=== PATIENT | female | born 1940 | race Caucasian/White ===

== ENCOUNTER 2021-11-06 17:21 | Emergency (ER) | payer MEDICARE, BC ==
[~2021-11-06] VITALS: Ht 180.3 cm; Wt 68.1 kg
[~2021-11-06 17:21] MED LIST: LORTAB 5/3255 MG PO
[2021-11-06] MEDS ORDERED: METOPROL TAR25 MG PO (18:02)
[2021-11-06] MEDS ORDERED: ELIQUIS2.5 MG (18:02)
[2021-11-06 19:16] LABS: HEMATOCRIT 39.1 % (37.0-47.0); HEMOGLOBIN 12.3 g/dl (12.0-16.0); IMMATURE GRANULOCYTES 0.2 % (0.0-5.0); MEAN CELL VOLUME 95.6 fL CALC (80.0-100.0); MEAN CORPUSCULAR HGB 30.1 pG CALC (26.0-32.0); MEAN CORPUSCULAR HGB CONC 31.5 g/dL CAL (32.0-36.0); NEUT# 9.38 thou/uL (2.00-7.15); RED BLOOD COUNT 4.09 mill/uL (4.20-5.60); RED CELL DISTRI WIDTH 12.9 % (11.5-15.5)
[2021-11-06 19:40] LABS: PROTHROMBIN TIME 10.4 SECONDS (9.0-12.5)
[2021-11-06 19:54] VITALS: BP 154/78
== END 2021-11-06 19:59 | disposition home or self-care (01) ==
LOC: ED 17:21
PROVIDERS: Nurse Practitioner
PROC: 0HQ0XZZ Repair Scalp Skin, External Approach (ICD-10-PCS; principal; 2021-11-06)
DX: S01.01XA Laceration without foreign body of scalp, initial encounter (principal); I10 Essential (primary) hypertension; W01.0XXA Fall on same level from slipping, tripping and stumbling without subsequent striking against object, initial encounter; Y92.009 Unspecified place in unspecified non-institutional (private) residence as the place of occurrence of the external cause; Z79.01 Long term (current) use of anticoagulants

== ENCOUNTER 2021-11-09 06:48 | Emergency (ER) | payer MEDICARE, BC ==
[2021-11-09] VITALS (9 sets, daily range): BP systolic 105–155; BP diastolic 56–79
[~2021-11-09] VITALS: Ht 172.7 cm; Wt 68.0 kg
[~2021-11-09 06:48] MED LIST changes: +ELIQUIS2.5 MG; +METOPROL TAR25 MG PO
[2021-11-09 07:32] LABS: HEMATOCRIT 40.6 % (37.0-47.0); HEMOGLOBIN 13.1 g/dl (12.0-16.0); IMMATURE GRANULOCYTES 0.2 % (0.0-5.0); MEAN CELL VOLUME 95.1 fL CALC (80.0-100.0); MEAN CORPUSCULAR HGB 30.7 pG CALC (26.0-32.0); MEAN CORPUSCULAR HGB CONC 32.3 g/dL CAL (32.0-36.0); NEUT# 5.58 thou/uL (2.00-7.15); RED BLOOD COUNT 4.27 mill/uL (4.20-5.60); RED CELL DISTRI WIDTH 13.2 % (11.5-15.5)
[2021-11-09 07:53] LABS: ALBUMIN 3.6 g/dL (3.2-5.0); ALKALINE PHOSPHATASE 114 u/l (38-126); ANION GAP 10 (6-22 (CALC)); BILIRUBIN, TOTAL 0.4 mg/dL (0.0-1.4); BUN 9 mg/dL (8-23); BUN/CREATININE RATIO 15 (12-20 (CALC)); CARBON DIOXIDE 25 mmol/l (22-30); CHLORIDE 108 mmol/l (95-108); CREATININE 0.6 mg/dL (0.5-1.0); GFR > 60 ML/MIN (>=60 (CALC)); GFR FOR AFR.AMER. > 60 ML/MIN (>=60 (CALC)); SGOT/AST 25 u/l (9-36); SODIUM 139 mmol/l (137-146); TOTAL PROTEIN 6.7 g/dL (6.3-8.2)
[2021-11-09] MEDS ORDERED: AMOX/K CLAV875 M1 PO (08:31)
[2021-11-09] MEDS ORDERED: ZPAK PO (08:31)
== END 2021-11-09 08:50 | disposition left against medical advice (07) ==
LOC: ED 06:48
PROVIDERS: Family Medicine
DX: R07.9 Chest pain, unspecified (principal); J18.9 Pneumonia, unspecified organism; I10 Essential (primary) hypertension; Z20.822 Contact with and (suspected) exposure to COVID-19; Z91.19 Patient's noncompliance with other medical treatment and regimen

== ENCOUNTER 2021-11-14 08:51 | Emergency (ER) | payer MEDICARE, BC ==
[~2021-11-14] VITALS: Ht 172.7 cm; Wt 68.2 kg
[~2021-11-14 08:51] MED LIST changes: +AMOX/K CLAV875 M1 PO; +ZPAK PO
[2021-11-14 09:54] VITALS: BP 153/81
[2021-11-14 10:00] VITALS: BP 142/78
[2021-11-14] MEDS ORDERED: NEOSPORI2 EX (10:12)
[2021-11-14 10:20] VITALS: BP 142/78
== END 2021-11-14 10:21 | disposition home or self-care (01) ==
LOC: ED 08:51
DX: S01.91XD Laceration without foreign body of unspecified part of head, subsequent encounter (principal); I10 Essential (primary) hypertension; X58.XXXD Exposure to other specified factors, subsequent encounter